=== PATIENT | male | born 1935 | race Caucasian/White ===

== ENCOUNTER 2017-10-05 19:47 | Emergency (ER) | payer OTHER ==
[2017-10-05 20:16] VITALS: BP 188/74; TEMP 99; O2SAT 98
--- NOTE | 2017-10-05 20:49 | ED.PDOC ---
History of Present Illness - General Chief Complaint: Lower Extremity Injury Stated Complaint: right calf pain Time Seen by Provider: 10/05/17 20:03 Source: patient Exam Limitations: no limitations - History of Present Illness Initial Comments: the patient is an 82-year-old male presenting to the emergency room secondary to pain in his posterior upper right calf. He has some swelling in that area. Yesterday he apparently bumped it hard against the back of a chair. He does have a bruise back there. He is on Coumadin. He does appear to be essentially neurovascularly intact. No evidence of any compartment syndrome clinically. Pulses are palpable. Sensation is preserved. He is able to move the ankle and the toes. He can move the knee though he doesn't like to because it hurts behind the knee. there is no pulsatile palpable masses. He is not pale or dizzy. No evidence of any spontaneous bleeding elsewhere. he does not have significant pain anteriorly or distally. No pallor. No poikilothermia. No paresthesias. there is no tenseness that is palpable in the anterior to anterior lateral distal lower extremity Timing/Duration: 24 hours Severity: mild Improving Factors: nothing Worsening Factors: movement Allergies/Adverse Reactions: Allergies NO KNOWN ALLERGY Allergy (Verified 10/05/17 20:16) Review of Systems - Review of Systems Constitutional: States: no symptoms reported EENTM: States: no symptoms reported Respiratory: States: no symptoms reported Cardiology: States: no symptoms reported Gastrointestinal/Abdominal: States: no symptoms reported Genitourinary: States: no symptoms reported Musculoskeletal: States: see HPI Skin: States: see HPI Neurological: States: no symptoms reported Endocrine: States: no symptoms reported All other Systems: No Change from Baseline Past Medical History (General) - Patient Medical History Hx Cardiac Disorders: Yes Hx Congestive Heart Failure: Yes Hx Pacemaker: No Hx Hypertension: Yes Hx Diabetes: No Hx Cancer: No Hx Hepatitis C: No Surgical History: coronary bypass surgery - Vaccination History Hx Tetanus, Diphtheria Vaccination: No Hx Influenza Vaccination: No Hx Pneumococcal Vaccination: No Immunizations Up to Date: No - Social History Hx Alcohol Use: No Hx Substance Use: No Hx Substance Use Treatment: No Hx Depression: No Family Medical History - Family History Mother Family History: Unknown Physical Exam - Physical Exam General Appearance: Alert, Comfortable, No apparent distress Eye Exam: bilateral normal Ears, Nose, Throat: normal ENT inspection, normal pharynx, other - 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 Neck: full range of motion, supple Respiratory: lungs clear, normal breath sounds, no respiratory distress, no accessory muscle use Cardiovascular/Chest: normal peripheral pulses, no edema, other - regular rate Peripheral Pulses: radial,right: 2+, radial,left: 2+, dorsalis pedis,right: 2+, dorsalis pedis,left: 2+, posterior tibialis,right: 2+, posterior tibialis,left: 2+ Gastrointestinal/Abdominal: non tender, soft Rectal Exam: deferred Back Exam: no CVA tenderness, no vertebral tenderness Extremity: no pedal edema, normal capillary refill, swelling, other - see history of present illness 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 Comments: Vital Signs - 24 hr 10/05/17 20:01 Temperature 99.0 F Pulse Rate [ 90 monitor] Respiratory 20 Rate Blood Pressure 188/74 [la] O2 Sat by Pulse 98 Oximetry Progress - Progress Progress: 10/05/17 20:51 the patient's an 82-year-old male presenting to the emergency room secondary to hematoma formation behind the right upper calf and knee over the last 24 hours secondary to blunt trauma. He is on Coumadin. He does need to hold his Coumadin for the next 3 days. vitamin K does not appear to be warranted at this time.We did apply a mild pressure wrap to this, starting from the toes up, and it does need to be adjusted every 4-6 hours. no evidence of compartment syndrome at this time. He is mildly anemic with an H&H of 9 and 27. I do suspect that this is long-standing. He does need follow-up with his primary care doctor on Saturday for repeat clinical evaluation and a repeat H&H. He can continue using his crutches for now with some mild weightbearing. He does need to continue to move the ankle the hip and the foot to keep blood circulating. He can even move the knee a little bit if he wants to. ER warnings are given for any significant worsening. - Results/Orders Results/Orders: Laboratory Results - last 24 hr 10/05/17 10/05/17 10/05/17 20:03 20:03 20:03 WBC 9.3 RBC 3.00 L Hgb 9.4 L Hct 27.6 L MCV 92.0 MCH 31.3 H MCHC 33.9 RDW 24.2 H Plt Count 174 MPV 10.1 Absolute Neuts (auto) 6.30 Absolute Lymphs (auto) 1.50 Absolute Monos (auto) 1.00 H Absolute Eos (auto) 0.40 Absolute Basos (auto) 0.10 Neutrophils % 67.6 Neutrophils % (Manual) 63.0 Lymphocytes % 15.8 L Lymphocytes % (Manual) 21.0 Monocytes % 10.9 H Monocytes % (Manual) 8.0 Eosinophils % 4.4 Basophils % 1.3 Band Neutrophils 8.0 H Hypochromia 2+ Platelet Estimate Normal Polychromasia 1+ Poikilocytosis 4+ Anisocytosis 4+ Schistocytes 3+ PT 22.2 H INR 2.24 H PTT (SP) 34.7 H Sodium 143 Potassium 4.1 Chloride 111 Carbon Dioxide 27 Anion Gap 9.1 L BUN 28 H Creatinine 1.23 BUN/Creatinine Ratio 22.8 H Random Glucose 132 H Serum Osmolality 292.3 Calcium 8.9 Total Bilirubin 0.9 AST 20 ALT 16 Alkaline Phosphatase 55 Serum Total Protein 6.1 L Albumin 3.7 Globulin 2.4 Albumin/Globulin Ratio 1.5 Departure - Departure Clinical Impression: Hematoma of lower limb Qualifiers: Encounter type: initial encounter Laterality: right Qualified Code(s): S80.11XA - Contusion of right lower leg, initial encounter Disposition: Discharge to Home or Self Care Condition: Fair Departure Forms: ED Discharge - Pt. Copy, Patient Portal Self Enrollment Instructions: DI for Leg Pain, DI for Trauma Diet: regular diet Activity: other Additional Instructions: the patient's an 82-year-old male presenting to the emergency room secondary to hematoma formation behind the right upper calf and knee over the last 24 hours secondary to blunt trauma. He is on Coumadin. He does need to hold his Coumadin for the next 3 days. vitamin K does not appear to be warranted at this time.We did apply a mild pressure wrap to this, starting from the toes up, and it does need to be adjusted every 4-6 hours. no evidence of compartment syndrome at this time. He is mildly anemic with an H&H of 9 and 27. I do suspect that this is long-standing. He does need follow-up with his primary care doctor on Saturday for repeat clinical evaluation and a repeat H&H. He can continue using his crutches for now with some mild weightbearing. He does need to continue to move the ankle the hip and the foot to keep blood circulating. He can even move the knee a little bit if he wants to. ER warnings are given for any significant worsening.
== END 2017-10-05 21:05 | disposition home or self-care (01) ==
LOC: ER 19:47
DX: S80.11XA Contusion of right lower leg, initial encounter (principal); I11.0 Hypertensive heart disease with heart failure; I50.9 Heart failure, unspecified; Z79.01 Long term (current) use of anticoagulants; Z95.1 Presence of aortocoronary bypass graft; W22.8XXA Striking against or struck by other objects, initial encounter; Y92.9 Unspecified place or not applicable